=== PATIENT | male | born 1995 | race African-American/Black ===

== ENCOUNTER 2017-03-06 12:20 | Emergency (ER) | payer BC ==
[~2017-03-06] VITALS: Ht 182.9 cm; Wt 95.3 kg
[2017-03-06 12:57] VITALS: BP 121/69
[2017-03-06] MEDS ORDERED: PRED50TA PO (13:00)
[2017-03-06] MEDS ORDERED: FAMO-63 PO (13:00)
[2017-03-06] MEDS ORDERED: FAMOTIDINE 20 MG TABLET. PO ONE (13:00)
[2017-03-06] MEDS ORDERED: EPIPEN0.3 MG/0.3 IJ (13:00)
[2017-03-06] MEDS ORDERED: IV NORMAL SALINE 1000ML BAG 1,000 ML IV ONE (13:00)
[2017-03-06] MEDS ORDERED: methylPREDNISolone SOD SUCC PF 125 MG/2 ML VIAL. IV ONE (13:00)
--- NOTE | 2017-03-06 13:03 | PHYS DOC ---
Past Medical History Past Medical History: Asthma Past Surgical History: No Surgical History Alcohol Use: None Drug Use: None Adult General Chief Complaint Chief Complaint: NAUSEA/VOMITING/DIARRHA HPI HPI Patient is a 21 year old male who presents with allergic reaction. patient states he ate fish just before arrival, had onset of nausea & vomiting x 1 with itchy eyes. he states he feels much better now after vomiting. Denies face/ tongue/lip swelling, throat tightness, shortness of breath, diarrhea, rash. 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 He does not have an EpiPen at home. No other new exposures to foods, medications , soaps/lotion/detergent. Review of Systems Review of Systems Constitutional: Denies fever or chills HENT: Denies nasal congestion or sore throat Respiratory: Denies cough or shortness of breath Cardiovascular: Denies chest pain or edema GI: Reports nausea & vomiting. Denies abdominal pain, or diarrhea Musculoskeletal: Denies back pain or joint pain Integument: Denies rash or skin lesions Neurologic: Denies headache, focal weakness or sensory changes Current Medications Current Medications Current Medications Medications (Trade) Dose Ordered Sig/Laron Start Time Stop Time Status Last Admin Dose Admin Famotidine (Pepcid) 20 mg 1X ONCE 03/06/17 13:00 03/06/17 13:01 DC Methylprednisolone Sodium Succinate (SOLU-Medrol 125MG VIAL) 125 mg 1X ONCE 03/06/17 13:00 03/06/17 13:01 DC Sodium Chloride 1,000 ml @ 1,000 mls/hr 1X ONCE 03/06/17 13:00 03/06/17 13:59 Allergies Allergies Allergies Coded Allergies Type Severity Reaction Last Updated Verified Fish Containing Products Allergy Severe 05/03/14 No fish derived Allergy Severe 05/03/14 No peanut Allergy Severe 05/03/14 Yes Physical Exam Physical Exam Constitutional: Well developed, well nourished, no acute distress, non-toxic appearance. HENT: Normocephalic, atraumatic, bilateral external ears normal, oropharynx moist, nose normal. no face/tongue/lip swelling, airway patent. Eyes: conjunctiva normal, no discharge. Neck: supple, no stridor. Cardiovascular: RRR, no murmurs, no edema. Lungs & Thorax: LCTAB, no wheezing, no respiratory distress. Abdomen: soft, nontender, nondistended. Skin: Warm, dry, no erythema, no rash. Back: No tenderness. Extremities: No tenderness, no edema. Neurologic: Alert and oriented X 3, no focal deficits noted. Psychologic: Affect normal, judgement normal, mood normal. EKG EKG [] Radiology/Procedures Radiology/Procedures [] Course & Med Decision Making Course & Med Decision Making Pertinent Labs and Imaging studies reviewed. (See chart for details) The patient presents with allergic reaction. No significant abnormalities on exam at time of my evaluation. The patient is feeling better, has stable vitals. He was requesting to leave shortly after evaluation because he wants to get to work. Offered to provide IV fluids, Solu-Medrol, Pepcid. He does not want Benadryl because that sedating. I see no indication for need for epinephrine at this time is no airway involvement and really only exhibiting GI symptoms. Recommend rest, hydration, continue Benadryl, every 6 hours, take pepcid & prednisone, gave prescription for epi pen to use as needed for anaphylaxis. Follow up with primary care physician in 2-3 days. Come back for face/tongue/lip swelling, severe shortness of breath, any otherwise worsening condition. Discharged home in stable condition, although after shorter observation than typical due to patient's pain to leave for work. Dragon Disclaimer Dragon Disclaimer This electronic medical record was generated, in whole or in part, using a voice recognition dictation system. Departure Departure Impression: Primary Impression: Allergic reaction Disposition: 01 HOME, SELF-CARE Condition: STABLE Referrals: NO PCP (PCP) CHUYITA MEJIA MD Patient Instructions: Food Allergy, [id number] Additional Instructions: You were seen in the emergency department today for allergic reaction to fish. Please rest, drink fluids, take benadryl every 6 hours for the next 4 days as tolerated, use pepcid & prednisone as prescribed. Use epi pen if you have face/ tongue/lip swelling, shortness of breath, any otherwise worsening condition. Follow up with Dr. Mejia or the primary care doctor of your choice in 2-3 days. Come back for face/tongue/lip swelling, severe shortness of breath, need to use epi pen, any otherwise worsening condition. Scripts Epinephrine (Epipen) 0.3 Mg/0.3 Ml Auto.injct 0.3 MG IJ 1X Y for ANAPHYLAXIS, #1 SYR Prov: ADAM BOLDEN MD 03/06/17 Famotidine (PEPCID) 20 Mg Tablet 20 MG PO HS, #5 TAB Prov: ADAM BOLDEN MD 03/06/17 Prednisone (PREDNISONE) 50 Mg Tablet 1 TAB PO DAILY, #5 TAB Prov: ADAM BOLDEN MD 03/06/17 Problem Qualifiers Primary Impression: Allergic reaction Encounter type: initial encounter Qualified Codes: T78.40XA - Allergy, unspecified, initial encounter ADAM BOLDEN MD Mar 06, 2017 13:03
== END 2017-03-06 13:19 | disposition home or self-care (01) ==
LOC: ER 12:20
DX: T78.40XA Allergy, unspecified, initial encounter (principal); R11.2 Nausea with vomiting, unspecified; H57.8 Other specified disorders of eye and adnexa; J45.909 Unspecified asthma, uncomplicated; Z91.010 Allergy to peanuts; Z91.013 Allergy to seafood
CPT/HCPCS: 96374; 99284; J2930

== ENCOUNTER 2017-04-14 15:10 | Emergency (ER) | payer BC ==
[~2017-04-14] VITALS: Ht 182.9 cm; Wt 92.1 kg
[~2017-04-14 15:10] MED LIST: EPIPEN0.3 MG/0.3 IJ; FAMO-63 PO; PRED50TA PO
[2017-04-14 15:35] VITALS: BP 150/73
--- NOTE | 2017-04-14 15:57 | RAD ---
Indication fourth digit injury. An AP view of the right hand was obtained as well as additional oblique and lateral imaging targeted to the ring finger. There is an acute traumatic fracture involving the tuft with an additional avulsion injury off the shaft of the distal phalanx on the radial side. IMPRESSION: Fractured tuft and distal shaft of the distal phalanx of the ring finger
[2017-04-14] MEDS ORDERED: SULF1TAB24 PO (16:18)
--- NOTE | 2017-04-14 16:18 | PHYS DOC ---
Past Medical History Past Medical History: Asthma Past Surgical History: No Surgical History Alcohol Use: Occasionally Drug Use: Marijuana Adult General Chief Complaint Chief Complaint: FINGER INJURY [facility] HPI Patient is a 21 year old male presents to the emergency department stating that he closed his left and right right ring finger in a door. He states this happened prior to arrival. He states his tetanus immunizations are not up-to- date. He denies having any injuries to this finger in the past. He has not taken anything for pain and discomfort. Patient is able to move the finger without difficulty. Review of Systems Review of Systems Constitutional: Denies fever or chills [] Eyes: Denies change in visual acuity, redness, or eye pain [] HENT: Denies nasal congestion or sore throat [] Respiratory: Denies cough or shortness of breath [] Cardiovascular: No additional information not addressed in HPI [] GI: Denies abdominal pain, nausea, vomiting, bloody stools or diarrhea [] : Denies dysuria or hematuria [] Musculoskeletal: Denies back pain or joint pain . Right ring finger pain and discomfort after shutting in the door. Integument: Denies rash or skin lesions. Complaint of patient with nail avulsion. Neurologic: Denies headache, focal weakness or sensory changes [] Endocrine: Denies polyuria or polydipsia [] Allergies Allergies Allergies Coded Allergies Type Severity Reaction Last Updated Verified Fish Containing Products Allergy Severe 05/03/14 No fish derived Allergy Severe 05/03/14 No peanut Allergy Severe 05/03/14 Yes Physical Exam Physical Exam Constitutional: Well developed, well nourished, no acute distress, non-toxic appearance. [] HENT: Normocephalic, atraumatic, bilateral external ears normal, oropharynx moist, no oral exudates, nose normal. [] Eyes: PERRLA, EOMI, conjunctiva normal, no discharge. [] Neck: Normal range of motion, no tenderness, supple, no stridor. [] Cardiovascular:Heart rate regular rhythm Lungs & Thorax: No respiratory distress noted Skin: Warm, dry, no erythema, no rash. Patient with a nail avulsion noted to the right ring finger. The nail appears to still be intact. Extremities: No tenderness, no cyanosis, no clubbing, ROM intact, no edema. Patient with tenderness noted to the tip of the right ring finger. Cap refill brisk less than 2 seconds. Neurologic: Alert and oriented X 3, normal motor function, normal sensory function, no focal deficits noted. [] Psychologic: Affect normal, judgement normal, mood normal. [] Current Patient Data Vital Signs Vital Signs Date Time Temp Pulse Resp B/P (MAP) Pulse Ox O2 Delivery O2 Flow Rate FiO2 04/14/17 15:35 98.6 95 18 94 Room Air 98.6 EKG EKG [] Radiology/Procedures Radiology/Procedures [][facility] [address] [place] [address] IMAGING REPORT Signed PATIENT: ANNA FITCH ACCOUNT: [id number] : 1995 LOCATION: ER AGE: 21 SEX: M EXAM STATUS: REG ER ORD. PHYSICIAN: GLORIA BEACH APRN REASON: finger injury PROCEDURE: FINGER(S) RIGHT Indication fourth digit injury. An AP view of the right hand was obtained as well as additional oblique and lateral imaging targeted to the ring finger. There is an acute traumatic fracture involving the tuft with an additional avulsion injury off the shaft of the distal phalanx on the radial side. IMPRESSION: Fractured tuft and distal shaft of the distal phalanx of the ring finger DICTATED and SIGNED BY: LUIS BOX MD DATE: 04/14/17 1553 CC: GLORIA BEACH APRN; NO PCP; NON,STAFF ~ Course & Med Decision Making Course & Med Decision Making Pertinent Labs and Imaging studies reviewed. (See chart for details) Patient's right ring finger was soaked in Betadine and saline. Radiology reveals this is being an old fracture however patient states he has never fractured the finger before. Patient's nail will be taped down he'll be placed in an aluminum finger splint to protect the tip of the finger. Recommended ice packs on 20 minutes off 20 minutes several times a day elevation as much as possible. Tylenol or ibuprofen for pain and discomfort. Patient agrees with discharge instructions treatment regimens and follow-up recommendations. He'll be provided with orthopedic name and number to follow up with. All signs and symptoms to return back to emergency department been provided. All questions and concerns been answered at patient's bedside. Patient is requesting a work note for today. [] Dragon Disclaimer Dragon Disclaimer This electronic medical record was generated, in whole or in part, using a voice recognition dictation system. Departure Departure Impression: Primary Impression: Avulsion of fingernail of right hand Additional Impression: Fracture of finger, distal phalanx, right, closed Disposition: 01 HOME, SELF-CARE Condition: STABLE Referrals: NO PCP (PCP) ROHITH PORTILLO MD Patient Instructions: Finger Fracture, Nail Avulsion Injury Additional Instructions: Activity as tolerated. Medication as prescribed. Tylenol or ibuprofen for pain and discomfort. Ice packs on 20 minutes off 20 minutes several times a day. Elevation as much as possible. Keep the finger clean and dry and clean the site twice daily with soap and water and apply antibiotic ointment to the area. Wear the splint for the next week. Follow-up with orthopedic within the next week. Return back to emergency prior signs symptoms of become worse. Scripts Sulfamethoxazole/Trimethoprim (BACTRIM DS TABLET) 1 Each Tablet 1 TAB PO BID, #20 TAB Prov: GLORIA BEACH APRN 04/14/17 Problem Qualifiers Additional Impression: Fracture of finger, distal phalanx, right, closed Encounter type: initial encounter Finger: ring finger GLORIA BEACH APRN Apr 14, 2017 16:18
[2017-04-14] MEDS ORDERED: DIPHTH,PERTUSS(ACELL),TET TOX 0.5 ML DISP.SYRIN. VAX IM ONE (16:30)
== END 2017-04-14 16:22 | disposition home or self-care (01) ==
LOC: ER 15:10
DX: S62.634A Displaced fracture of distal phalanx of right ring finger, initial encounter for closed fracture (principal); J45.909 Unspecified asthma, uncomplicated; Z91.013 Allergy to seafood; Z91.010 Allergy to peanuts; W23.0XXA Caught, crushed, jammed, or pinched between moving objects, initial encounter; Y93.89 Activity, other specified; Y92.89 Other specified places as the place of occurrence of the external cause; Y99.8 Other external cause status
CPT/HCPCS: 29130; 73140; 90471; 90715; 99284-25